=== PATIENT | male | born 1955 | race African-American/Black ===

== ENCOUNTER 2017-05-11 04:39 | Inpatient (IN) | payer OTHER ==
[2017-05-11] VITALS (12 sets, daily range): BP systolic 148–201; BP diastolic 106–776
[~2017-05-11] VITALS: Ht 165.1 cm; Wt 59.1 kg
--- NOTE | ~2017-05-11 | EKG ---
[place] [address] [address] [place] [address] ELECTROCARDIOGRAM REPORT Name: DRE CARTWRIGHT Room #: 359-P ADM IN M.R.#: [id number] Admission: 05/11/17 Attend Phys: Eddie Naidu MD Discharge: Date of : 53 Report #: [id number] THIS REPORT FOR: //name// [facility] ED Test Date: 2017-05-11 Test Time: 04:40:19 Pat Name: DRE CARTWRIGHT Department: Room: 359 Gender: M Analytical Data Scientist: GISELA : 1955 Requested By: Rianna Bernal Order Number: [id number] MD: Kasi Navarrete Measurements Intervals Victor Rate: 77 P: 71 AK: 146 QRS: 60 QRSD: 92 T: 240 QT: 405 QTc: 459 Interpretive Statements Sinus rhythm Probable LVH with secondary repol abnrm No previous ECG available for comparison Electronically Signed On 05-11-2017 19:20:08 CDT by Kasi Navarrete [email or web address] <ELECTRONICALLY SIGNED> By: Kasi Navarrete MD, FAC 05/11/17 1920 0440 0440 Kasi Navarrete MD, FACC /EPI
--- NOTE | ~2017-05-11 | HC ---
[facility] [place] [address] CONSULTATION Name: CHAYDRE Room #: 359-P [facility] IN M.R.#: [id number] Admission: 05/11/17 Attend Phys: Eddie Naidu MD Discharge: 05/13/17 Date of : 53 Report #: [id number] THIS REPORT FOR: //name// CC: Eddie Galvezh Joshua DATE OF SERVICE: 05/12/2017 HISTORY OF PRESENT ILLNESS: The patient is a 61-year-old -Tajik male with a known history of chronic kidney disease, hypertension, CHF, COPD, and prior CVA with right-sided weakness. Apparently, the CVA occurred 2-3 years ago, although the patient is a limited historian. He was recently hospitalized at [facility], discharged on 04/28/2017 for hypertensive urgency, acute on chronic renal failure, and chronic kidney disease. He has a creatinine of 3.2 at baseline. He was admitted to [facility] with uncontrolled blood pressure 201/142. He is being seen by Nephrology and Pulmonary. He has advanced chronic kidney disease with hypertension, cardiomyopathy and a remote history of a hemorrhagic stroke. He is currently on nasal prong O2. His blood pressure medications are being modified. He is responding to diuresis as he was noted to have flash pulmonary edema with the sudden and abrupt rise in his blood pressure. He has had an overall functional decline. We are seeing him in rehabilitation medicine consultation. PAST MEDICAL HISTORY: As noted above. Apparently, the CVA is a couple of years ago. He does have right-sided weakness. PAST MEDICAL HISTORY: Also includes prior tobacco abuse, chronic kidney disease, seizures, and COPD. ALLERGIES: ASPIRIN AND MOTRIN. MEDICATIONS: Please see the full medication listing. SOCIAL HISTORY: He was staying at [facility] since his most recent admission from [facility]. Apparently, this is an assisted living, although I am uncertain this regard. He indicates he had previously been living in a house with brother of his. No steps. REVIEW OF SYSTEMS: No current complaints of chest pain, shortness of breath or abdominal discomfort. PHYSICAL EXAMINATION: GENERAL: A 61-year-old -Tajik male in no obvious distress. He is currently on oxygen nasal prong O2, 2 liters. NEUROLOGIC: Facies are symmetric. He will follow basic 1 step commands. He is pleasant, but does not have a good memory of his prior medical issues. He has [facility] [address] [place] [address] CONSULTATION Name: DRE CARTWRIGHT Room #: 359-P [facility] IN ..#: [id number] Admission: 05/11/17 Attend Phys: Eddie Naidu MD Discharge: 05/13/17 Date of : 53 Report #: [id number] functional range of motion of both upper extremities, strength grade 4+/5 in the left, 4- in the right lower extremity. Functional range of motion, strength is grade 4+/5 in the left, 4- in the right. DTRs are trace to 1. He is min assist with sit to stand. Gait was 150 feet mod assist without a device. He does not like to use the walker, but without it he has significant instability and has loss of balance and noted instability of that right lower extremity. IMPRESSION: A 61-year-old -Tajik male with the following problem list: 1. Right-sided hemiparesis. 2. Late effect cerebrovascular accident. 3. Likely hypertensive encephalopathy. 4. Uncontrolled blood pressure. 5. Flash pulmonary edema. 6. Advanced kidney disease. 7. Acute on chronic diastolic heart failure. 8. Hypertensive cardiomyopathy. PLAN: We will need to check regarding his prior home setting. As far as if the [facility] is indeed an assisted living facility and the plan is for him to return back there. He may be a candidate for a short acute in-hospital inpatient rehabilitation stay. This would allow further maximization of his functional independence as well as monitoring of his considerable blood pressure and multiple medical issues. At this point, we will be glad to follow along with you. <ELECTRONICALLY SIGNED> By: Calixto Heart MD 05/18/17 1030 1132 1941 Calixto Heart MD /[facility]
--- NOTE | ~2017-05-11 | 2DMMODE ---
[facility] [address] [place] [address] 2 D/M-MODE ECHOCARDIOGRAM Name: DRE CARTWRIGHT Room #: 359-P [facility] IN M.R.#: [id number] Admission: 05/11/17 Attend Phys: Eddie Naidu, Discharge: Date of : 53 Date of Service: 05/11/17 1543 Report #: [id number] THIS REPORT FOR: //name// APPROVED REPORT Study performed: 05/11/2017 10:29:39 EXAM: Comprehensive 2D, Doppler, and color-flow Echocardiogram Patient Location: Bedside Room #: 359 Status: routine BSA: 2.00 HR: 72 bpm BP: 177/115 mmHg Rhythm: NSR Other Information Study Quality: Adequate Indications Acute on chronic heart failure, short of breath. Hx: CVA, HTN 2D Dimensions RVDd: 37.67 mm LVEF(%): 38.45 (>50%) IVSd: 13.87 (7-11mm) LVOT Diam: 22.79 (18-24mm) LVDd: 48.17 mm PWd: 13.67 (7-11mm) Ascending Ao: 32.57 (22-36mm) LVDs: 39.20 (25-40mm) Aortic Root: 41.20 mm Dunlap's LVEF: 38.45 % Volumes Left Atrial Volume (Systole) Single Plane 4CH: 70.10 mL Single Plane 2CH: 97.15 mL LA ESV Index: 46.00 mL/m2 Aortic Valve AoV Peak Ady.: 1.01 m/s AO Peak Gr.: 4.06 mmHg LVOT Max P.93 mmHg LVOT Max V: 0.69 m/s LISA Vmax: 2.81 cm2 AI Vmax: 5.63 m/s AI Frederick: 2.81 m/s2 AI PHT: 580.38 ms [facility] [place] [address] 2 D/M-MODE ECHOCARDIOGRAM Name: DRE CARTWRIGHT Room #: 359-P [facility] IN ..#: [id number] Admission: 05/11/17 Attend Phys: Eddie Naidu, Discharge: Date of : 53 Date of Service: 05/11/17 1543 Report #: [id number] Mitral Valve E/A Ratio: 3.1 MV Decel. Time: 195.24 ms MV E Max Ady.: 1.27 m/s MV A Ady.: 0.41 m/s MV PHT: 56.62 ms IVRT: 78.43 ms Pulmonary Valve PV Peak Ady.: 0.72 m/s PV Peak Gr.: 2.09 mmHg Pulmonary Vein P Vein S: 0.35 m/s P Vein D: 0.45 m/s P Vein S/D Ratio: 0.78 Tricuspid Valve TR Peak Ady.: 3.95 m/s RAP Estimate: 5.00 mmHg TR Peak Gr.: 62.47 mmHg PA Pressure: 67.00 mmHg Left Ventricle The left ventricle is normal size. Moderate concentric left ventricular hypertrophy. Left ventricular systolic function is moderate to severely decreased. LVEF 35%. Severe diastolic dysfunction is present (restrictive filling). Right Ventricle The right ventricle is normal size. The right ventricular systolic function is normal. Atria Left atrium is moderate to severely dilated. The right atrium size is normal. Aortic Valve The aortic valve is sclerotic, trileaflet. Mild to moderate aortic regurgitation. There is no aortic valvular stenosis. Mitral Valve The mitral valve is mildly thickened. Mild to moderate mitral regurgitation. Tricuspid Valve The tricuspid valve is normal in structure. Mild to moderate tricuspid regurgitation. Estimated PAP is 65-70mmHg. [address] [address] 2 D/M-MODE ECHOCARDIOGRAM Name: DRE CARTWRIGHT Room #: 359-P [facility] IN [facility]#: [id number] Admission: 05/11/17 Attend Phys: Eddie Naidu, Discharge: Date of : 53 Date of Service: 05/11/17 1543 Report #: [id number] Pulmonic Valve The pulmonary valve is normal in structure. Mild pulmonic regurgitation. Great Vessels Aortic root is dilated at 4.1cm. The ascending aorta is normal in size. IVC is normal in size and collapses >50% with inspiration. Pericardium There is no pericardial effusion. <Conclusion> Left ventricular systolic function is moderate to severely decreased. Moderate concentric left ventricular hypertrophy. LVEF 35%. Severe diastolic dysfunction is present (restrictive filling). Left atrium is moderate to severely dilated. The aortic valve is sclerotic, trileaflet. Mild to moderate aortic regurgitation, no stenosis. The mitral valve is structurally normal. Mild to moderate mitral regurgitation. Mild to moderate tricuspid regurgitation. Estimated pulmonary artery pressure of 65-70mmHg. There is no pericardial effusion. <ELECTRONICALLY SIGNED> By: Kasi Navarrete MD, FACC 05/11/17 1543 1543 1543 Kasi Navarrete MD, FACC /INF
--- NOTE | ~2017-05-11 | HC ---
[facility] [place] [address] CONSULTATION Name: DRE CARTWRIGHT Room #: 359-P [facility] IN M.R.#: [id number] Admission: 05/11/17 Attend Phys: Eddie Naidu MD Discharge: 05/13/17 Date of : 53 Report #: [id number] THIS REPORT FOR: //name// CC: Eddie Galvezh Gennacatholic healthezequiel DATE OF SERVICE: 05/11/2017 REASON FOR CONSULTATION: Elevated creatinine. REASON FOR PRESENTATION: Shortness of breath. HISTORY OF PRESENT ILLNESS: The patient has suffered in the past from a hemorrhagic stroke and I am not really sure how accurate the information he is providing me with. I reviewed all of his medical record in our clinic. He has chronic kidney disease. His baseline creatinine is around 3.2. He also suffers from hypertension and it does look like that there is an issue of noncompliance. He stays in a fdc facility, or an independent living facility, the details are not clear to me and he is not able to provide me with the place he stays in. He presented reporting to the Emergency Room that he has been having shortness of breath for the last few days. Apparently, he has not been compliant with his medications and fluid intake. On presentation, he was found to have hypertensive urgency and was admitted for further evaluation and management of his pulmonary edema. I am being consulted to manage his chronic kidney disease. As I have stated, I reviewed his medical records in our kidney clinic and it does look like that he carries a diagnosis of chronic kidney disease stage 4 with a baseline creatinine of around 3.2. PAST MEDICAL HISTORY: 1. Hemorrhagic stroke. 2. Heart failure in the past. 3. Chronic kidney disease. 4. Hypertensive arterial nephrosclerosis. 5. Noncompliance with medications. 6. Seizure after his hemorrhagic stroke. SOCIAL HISTORY: He stays in an assisted living setting. No drug or alcohol use. MEDICATIONS: Listed on his chronic medications: 1. Furosemide. 2. Keppra. 3. Hydralazine. ALLERGIES: LISTED ON HIS MEDICATIONS ALLERGIES ANGELIQUE INHIBITOR AND NONSTEROIDAL ANTI-INFLAMMATORY MEDICATIONS. [facility] [address] [place] [address] CONSULTATION Name: DRE CARTWRIGHT Room #: 359-P [facility] IN M.R.#: [id number] Admission: 05/11/17 Attend Phys: Eddie Naidu MD Discharge: 05/13/17 Date of : 53 Report #: [id number] REVIEW OF SYSTEMS: GENERAL: Significant for weakness. CARDIOVASCULAR: No chest pain or palpitation. PULMONARY: No cough or hemoptysis; however, significant shortness of breath and dyspnea on exertion. GASTROINTESTINAL: No nausea or vomiting. GENITOURINARY: No frequency or urgency. SKIN: No rash or ulcerations. PHYSICAL EXAMINATION: GENERAL: He is alert, oriented. He is a little tachypneic. VITAL SIGNS: Blood pressure was extremely elevated at 210/110. HEAD AND NECK: Elevated jugular venous pressure. CHEST: Bilateral crackles. CARDIOVASCULAR: S4 gallop, but no rub detected. ABDOMEN: Soft, nontender. LOWER EXTREMITIES: No edema. LABORATORY DATA: Reviewed. Creatinine is up to 3.5. Chest x-ray reviewed, consistent with pulmonary edema. ASSESSMENT, IMPRESSION: 1. Pulmonary edema. 2. Hypertensive urgency. 3. Chronic kidney disease. 4. Questionable compliance. 5. History of hemorrhagic stroke and seizure disorder. PLAN: 1. From the renal perspective, the patient seems to be at his baseline. He is ALLERGIC TO ANGELIQUE INHIBITORS GROUP OF MEDICATIONS. 2. We will aim for gradual reduction in his blood pressure. 3. Diuresis for his pulmonary edema. 4. Salt and fluid restrictions. 5. Cardiac echo. 6. Daily body weight. 7. Strict input and output. 8. Major issue contributing to his pulmonary edema is the fact that he has an extremely high blood pressure and I am not really sure about his medications and who is assisting him with the medications. We will have to communicate with his facility regarding those issues. [facility] [address] [place] [address] CONSULTATION Name: DRE CARTWRIGHT Room #: 359-P [facility] IN M.R.#: [id number] Admission: 05/11/17 Attend Phys: Eddie Naidu MD Discharge: 05/13/17 Date of : 53 Report #: [id number] 9. Once I obtain those information, we will readjust his medications accordingly for better blood pressure control. <ELECTRONICALLY SIGNED> By: Meera Gustafson MD 05/17/17 0848 1532 1558 Meera Gustafson MD /nt
--- NOTE | ~2017-05-11 | HC ---
[facility] [place] [address] CONSULTATION Name: DRE CARTWRIGHT Room #: 359-P [facility] IN M.R.#: [id number] Admission: 05/11/17 Attend Phys: Eddie Naidu MD Discharge: Date of : 53 Report #: [id number] THIS REPORT FOR: //name// CC: Eddie [facility]. [facility] cent[facility]iel REASON FOR CONSULTATION: Shortness of breath. HISTORY OF PRESENT ILLNESS: The patient is a 61-year-old gentleman who has a history of a prior stroke and advanced kidney disease. He lives in an assisted living environment and presents with a several-day history of increasing shortness of breath. Reports this is reminiscent to fluid overload problems that he has had in the past. He reports seeing a plush finisher. He cannot remember the name and tells me that dialysis has been talked about. He has no interest in this. The patient denies chest pain or pressure. He has had mild lower extremity edema. No history of palpitations, near syncope or syncope. ALLERGIES: He is ALLERGIC to ASPIRIN and IBUPROFEN. MEDICATIONS: Include clonidine 0.2 mg twice daily, Plavix 75 mg daily, hydralazine 25 mg 3 times a day, Keppra 500 mg twice daily, Imdur 30 mg daily. PAST MEDICAL HISTORY: Medical records have been reviewed and include a history of hypertension, advanced kidney disease, prior stroke with right-sided weakness. SOCIAL HISTORY: He is a nonsmoker, lives in an assisted living environment. FAMILY HISTORY: Unremarkable for premature coronary disease. REVIEW OF SYSTEMS: All systems negative except as that noted above. PHYSICAL EXAMINATION: GENERAL: This is a pleasant gentleman who is in no distress. VITAL SIGNS: Blood pressure is 170/110, heart rate is 78 and regular, saturations are 100% on room air. HEENT: There are neither xanthelasma, subcutaneous xanthomata, oral mucosal or digital cyanosis or kyphoscoliosis present. CHEST: Clear to auscultation and percussion. CARDIAC: Regular rate and rhythm with normal S1, S2. An S4 gallop is present. Jugular venous pressure is elevated. ABDOMEN: Soft and nontender. EXTREMITIES: With trace edema. Radial pulses are 2+. NEUROLOGIC: Alert with a nonfocal exam. LABORATORY DATA: Sodium is 142, potassium 4.1, creatinine 3.6. Troponin 0.07. ProBNP of 17,000. White count 3.1, hemoglobin 11, hematocrit 36, platelet count [facility] [address] [place] [address] CONSULTATION Name: DRE CARTWRIGHT Room #: 359-P [facility] IN [facility].#: [id number] Admission: 05/11/17 Attend Phys: Eddie Naidu MD Discharge: Date of : 53 Report #: [id number]. Chest x-ray demonstrates cardiomegaly and vascular congestion. IMPRESSION: 1. Tydxb-fb-jvaulpf diastolic heart failure. 2. Advanced kidney disease contributing to #1 above. 3. Hypertension. 4. Prior stroke. RECOMMENDATIONS: 1. Renal consultation. 2. Echocardiogram with Doppler. I suspect most of his presenting symptoms are on the basis of advancing kidney disease. With improved volume status, I suspect his blood pressure will also improve. Thank you for asking me to participate in his care. <ELECTRONICALLY SIGNED> By: Kasi Navarrete MD, FACC 05/12/17 1453 0918 0953 Kasi Navarrete MD, FACC /nt
[2017-05-11 05:01] LABS: ABSOLUTE NEUTROPHILS 1.9 thou/uL (1.4-8.2); BASOPHILS 0.9 % (0.0-2.0); EOSINOPHILS 4.8 % (0.0-3.0); HEMATOCRIT 36.5 % (42.0-52.0); HEMOGLOBIN 11.7 gm/dL (14.0-18.0); LYMPHOCYTES 23.5 % (24.0-44.0); MCH 28.2 pg (26.0-34.0); MCV 88.1 fL (80.0-100.0); MONOCYTES 9.4 % (1.0-8.0); PLATELET COUNT 139 thou/uL (150-400); POLYS 61.4 % (36.0-66.0); RBC 4.14 mil/uL (4.50-6.00); RDW 16.2 % (10.5-14.5); WBC 3.1 thou/uL (4.0-11.0)
[2017-05-11 05:04] LABS: CALCIUM 7.9 mg/dL (8.5-10.1); CREATININE 3.6 mg/dL (0.7-1.3); POTASSIUM 4.1 mmol/L (3.5-5.1)
[2017-05-11 05:13] LABS: TROPONIN-I 0.07 ng/mL (<0.06)
[2017-05-11] MEDS ORDERED: HYDRALAZINE 2525 MG PO (05:39)
[2017-05-11] MEDS ORDERED: PLAVIX 75 MG TA75 M1 PO (05:39)
[2017-05-11] MEDS ORDERED: CATAPRES0.1 MG PO (05:39)
[2017-05-11] MEDS ORDERED: IMDUR 30 MG TAB30 M1 PO (05:41)
[2017-05-11] MEDS ORDERED: KEPPRA 500 MG500 M1 PO (05:41)
[2017-05-11] MEDS ORDERED: CLONIDINE HCL0.2 M2 PO (05:44)
[2017-05-11] MEDS ORDERED: COREG25 MG PO (10:15)
[2017-05-11 10:36] LABS: CHOLESTEROL 151 mg/dL (<200); HDL CHOLESTEROL 69 mg/dL (>40); LDL CHOLESTEROL 78 mg/dL (<100); TC:HDL 2.2 Ratio (Not establshd); TRIGLYCERIDE 23 mg/dL (<150); VLDL 5 mg/dL (<40)
[2017-05-12 04:15] VITALS: BP 171/116
[2017-05-12 05:44] LABS: HEMATOCRIT 33.5 % (42.0-52.0); MCH 28.7 pg (26.0-34.0); MCHC 32.9 g/dL (28.0-37.0); MCV 87.3 fL (80.0-100.0); RBC 3.84 mil/uL (4.50-6.00); RDW 15.8 % (10.5-14.5); WBC 4.2 thou/uL (4.0-11.0)
[2017-05-12 06:06] LABS: ALBUMIN 2.7 g/dL (3.4-5.0); CALCIUM 8.1 mg/dL (8.5-10.1); CREATININE 3.9 mg/dL (0.7-1.3); PHOSPHORUS 4.4 mg/dL (2.5-4.9); POTASSIUM 3.7 mmol/L (3.5-5.1)
[2017-05-12 08:05] VITALS: BP 178/123
[2017-05-12 11:44] VITALS: BP 156/114
[2017-05-12 15:32] VITALS: BP 124/92
[2017-05-12 19:15] VITALS: BP 131/97
[2017-05-13 03:33] VITALS: BP 148/92
[2017-05-13 06:37] LABS: HEMATOCRIT 38.2 % (42.0-52.0); HEMOGLOBIN 12.6 gm/dL (14.0-18.0); MCH 28.4 pg (26.0-34.0); MCV 86.1 fL (80.0-100.0); RBC 4.43 mil/uL (4.50-6.00); RDW 15.5 % (10.5-14.5)
[2017-05-13 06:49] LABS: CALCIUM 8.3 mg/dL (8.5-10.1); CREATININE 3.8 mg/dL (0.7-1.3); PHOSPHORUS 4.4 mg/dL (2.5-4.9); POTASSIUM 3.6 mmol/L (3.5-5.1)
[2017-05-13 07:56] VITALS: BP 159/110
[2017-05-13 12:10] VITALS: BP 108/81
[2017-05-13 13:23] VITALS: BP 108/81
[2017-05-13] MEDS ORDERED: HYDRALAZINE 2525 MG PO (14:18)
[2017-05-13] MEDS ORDERED: DEMADEX20 MG PO (14:18)
[2017-05-13] MEDS ORDERED: IMDUR 30 MG TAB30 M1 PO (14:18)
[2017-05-13] MEDS ORDERED: CALTRATE-600 W1 EACH PO (14:18)
[2017-05-13] MEDS ORDERED: CATAPRES0.1 MG PO (14:18)
[2017-05-13] MEDS ORDERED: NORVASC10 MG PO (14:18)
[2017-05-13] MEDS ORDERED: MIRALAX17 GM PO (14:18)
== END 2017-05-13 14:59 | disposition short-term general hospital (02) | DRG 291 ==
LOC: ER 04:39 → EROBS 06:21 → 3W 06:21
PROVIDERS: Emergency Medicine; Hospitalist; Internal Medicine
DX: I13.0 Hypertensive heart and chronic kidney disease with heart failure and stage 1 through stage 4 chronic kidney disease, or unspecified chronic kidney disease (principal); I50.33 Acute on chronic diastolic (congestive) heart failure; N17.9 Acute kidney failure, unspecified; I69.351 Hemiplegia and hemiparesis following cerebral infarction affecting right dominant side; I16.1 Hypertensive emergency; I42.9 Cardiomyopathy, unspecified; N18.9 Chronic kidney disease, unspecified; I16.0 Hypertensive urgency; G40.909 Epilepsy, unspecified, not intractable, without status epilepticus; R26.81 Unsteadiness on feet; J44.9 Chronic obstructive pulmonary disease, unspecified; Z87.891 Personal history of nicotine dependence; Z88.6 Allergy status to analgesic agent; Z88.8 Allergy status to other drugs, medicaments and biological substances
CPT/HCPCS: 10879

== ENCOUNTER 2017-05-13 11:59 | Inpatient (IN) | payer OTHER ==
[~2017-05-13] VITALS: Ht 167.6 cm; Wt 58.3 kg
--- NOTE | ~2017-05-13 | H ---
[facility] [place] [address] HISTORY AND PHYSICAL Name: DRE CARTWRIGHT Room #: 504-2 ADM IN M.R.#: [id number] Admission: 05/13/17 Attend Phys: Calixto Heart MD Discharge: Date of : 53 Report #: [id number] THIS REPORT FOR: //name// CC: Calixto Lewis DATE OF SERVICE: 05/13/2017 ADDENDUM Note, I am covering for Dr. Calixto Heart and therefore completing this history and physical for him. Please see complete history and physical that was done by Carlene Padilla NP HISTORY OF PRESENT ILLNESS: Briefly, the patient is a pleasant 61-year-old right hand dominant male with a known history of chronic kidney disease, hypertension, congestive heart failure, COPD and a prior cerebrovascular accident with right-sided weakness. Records indicate that his stroke was approximately 2-3 years ago, but the patient provides a limited amount of history. He was recently hospitalized at [facility] and discharged on 04/28/2017 with hypertensive urgency, acute on chronic renal failure and chronic kidney disease. He was seen in consultation by Dr. Calixto Heart on 05/12/2017, and it was determined that he would benefit from an acute inpatient rehabilitation stay. He lives in an assisted living facility, and the plan is for him to return to assisted living. Dr. Heart felt he would be a good candidate for a short in-hospital rehabilitation stay in order to further maximize his functional independence and to monitor his considerable blood pressure issues and other multiple medical issues. POSTADMISSION PHYSICIAN EVALUATION.: A post-admission physician evaluation was performed today. The patient's preadmission screening was reviewed in its entirety by this examiner. His current clinical status is supported by the information contained within. He is an appropriate candidate to undergo a comprehensive inpatient rehabilitation program consisting of physical therapy, occupational therapy and speech therapy 3 hours a day for at least 5 days a week. Furthermore, nothing is changed since his preadmission screen was completed to suggest that he is not a candidate for the program. It is my opinion that inpatient rehabilitation rather than alf is much more appropriate environment for the patient due to his multiple medical needs, requiring comprehensive followup care. He is at risk of clinical [address] [address] HISTORY AND PHYSICAL Name: DRE CARTWRIGHT Room #: 504-2 ADM IN [facility].#: [id number] Admission: 05/13/17 Attend Phys: Calixto Heart MD Discharge: Date of : 53 Report #: [id number] complications during rehabilitation due to the following adverse medical conditions: 1. Congestive heart failure. 2. Chronic obstructive pulmonary disease. 3. Substantial elevated hypertension. 4. Chronic renal failure on chronic kidney disease with a creatinine at baseline of 3.2. 5. Hypertensive encephalopathy. My plan to manage these conditions is to consult Dr. Cochran, Dr. Gustafson and Dr. Barnett to help manage his multiple medical issues. INDIVIDUALIZED OVERALL PLAN OF CARE: Summarization of findings. The patient is receiving an inpatient rehabilitation program due to the following functional impairments: 1. Hypertensive encephalopathy. 2. Late effects of cerebrovascular accident. 3. Multiple medical issues leading to functional immobility. 4. Visual deficits due to prior stroke and chronic medical issues. IDENTIFIED INTERVENTIONS: Include physical therapy, occupational therapy, speech therapy to address mobility and self-care deficits, communication, cognitive and swallowing impairment. Physical Medicine and Rehabilitation will provide management of his rehabilitation care plan. Internal Medicine will follow him for multiple medical issues. Nephrology will follow him for his chronic kidney disease. Rehabilitation nursing care 24 hours a day will be provided for care needs. behavioral services tech for discharge planning and medical equipment needs. Dietitian consultation for nutritional purposes. ESTIMATED LENGTH OF STAY: Approximately 10 days. ANTICIPATED FUNCTIONAL OUTCOME: Modified independent to standby assist with mobility and self-care skills. ANTICIPATED DISCHARGE DESTINATION: Home with assistance in the assisted living facility. He will likely benefit from continued therapies at the time of discharge. MEDICAL PROGNOSIS: Fair. He will continue to receive internal medicine followup. Nephrology followup. Neuropsych followup. ANTICIPATED THERAPIES: Physical therapy, occupational therapy and speech therapy 3 hours a day 5 days a week for an anticipated duration of 10 days. SUMMARIZATION OF TREATMENT PLAN: The patient will continue to receive an [address] [address] HISTORY AND PHYSICAL Name: CHAYDRE Room #: 504-2 [facility] IN M.R.#: [id number] Admission: 05/13/17 Attend Phys: Calixto Heart MD Discharge: Date of : 53 Report #: [id number] inpatient rehabilitation program as outlined above in an effort to improve his overall function and return home at a modified independent level within 10 days. <ELECTRONICALLY SIGNED> By: Damián Daigle DO 05/15/17 1411 1709 1748 Damián Daigle DO /nt
[~2017-05-13 11:59] MED LIST: CATAPRES0.1 MG PO; CLONIDINE HCL0.2 M2 PO; COREG25 MG PO; HYDRALAZINE 2525 MG PO; IMDUR 30 MG TAB30 M1 PO; KEPPRA 500 MG500 M1 PO; PLAVIX 75 MG TA75 M1 PO
[2017-05-13] MEDS ORDERED: DEMADEX20 MG PO (14:18)
[2017-05-13] MEDS ORDERED: CALTRATE-600 W1 EACH PO (14:18)
[2017-05-13] MEDS ORDERED: NORVASC10 MG PO (14:18)
[2017-05-13] MEDS ORDERED: CATAPRES0.1 MG PO (14:18)
[2017-05-13] MEDS ORDERED: IMDUR 30 MG TAB30 M1 PO (14:18)
[2017-05-13] MEDS ORDERED: MIRALAX17 GM PO (14:18)
[2017-05-13] MEDS ORDERED: HYDRALAZINE 2525 MG PO (14:18)
[2017-05-13 15:00] VITALS: BP 105/77
[2017-05-13 20:20] VITALS: BP 134/93
[2017-05-14 06:10] LABS: HEMATOCRIT 40.5 % (42.0-52.0); HEMOGLOBIN 13.3 gm/dL (14.0-18.0); MCH 28.2 pg (26.0-34.0); MCHC 32.7 g/dL (28.0-37.0); MCV 86.1 fL (80.0-100.0); RBC 4.7 mil/uL (4.50-6.00); RDW 15.8 % (10.5-14.5); WBC 3.9 thou/uL (4.0-11.0)
[2017-05-14 06:26] LABS: CALCIUM 8.3 mg/dL (8.5-10.1); MAGNESIUM 1.9 mg/dL (1.8-2.4); PHOSPHORUS 3.9 mg/dL (2.5-4.9); POTASSIUM 3.9 mmol/L (3.5-5.1)
[2017-05-14 07:30] VITALS: BP 146/96
[2017-05-14 17:52] VITALS: BP 102/74
[2017-05-14 19:51] VITALS: BP 128/90
[2017-05-15 06:59] LABS: ALBUMIN 3.1 g/dL (3.4-5.0); CALCIUM 8.2 mg/dL (8.5-10.1); CREATININE 4.4 mg/dL (0.7-1.3); PHOSPHORUS 4.1 mg/dL (2.5-4.9); POTASSIUM 3.7 mmol/L (3.5-5.1)
[2017-05-15 07:38] VITALS: BP 157/112
[2017-05-15 19:10] VITALS: BP 137/93
[2017-05-16 11:07] LABS: CALCIUM 9.1 mg/dL (8.5-10.1); CREATININE 4.4 mg/dL (0.7-1.3)
[2017-05-16 19:10] VITALS: BP 142/103
[2017-05-17 06:43] LABS: ALBUMIN 2.7 g/dL (3.4-5.0); CALCIUM 8.3 mg/dL (8.5-10.1); CREATININE 4.1 mg/dL (0.7-1.3); PHOSPHORUS 4.1 mg/dL (2.5-4.9); POTASSIUM 3.6 mmol/L (3.5-5.1)
[2017-05-17 07:15] VITALS: BP 162/102
[2017-05-17 15:47] VITALS: BP 149/108
[2017-05-17 19:58] VITALS: BP 158/99
[2017-05-18 07:10] VITALS: BP 181/128
[2017-05-18 08:10] LABS: ALBUMIN 3.5 g/dL (3.4-5.0); CALCIUM 8.8 mg/dL (8.5-10.1); CREATININE 3.6 mg/dL (0.7-1.3); PHOSPHORUS 3.8 mg/dL (2.5-4.9); POTASSIUM 3.9 mmol/L (3.5-5.1)
[2017-05-18 08:24] VITALS: BP 179/127
[2017-05-18 10:56] VITALS: BP 160/110
[2017-05-18 20:33] VITALS: BP 146/97
[2017-05-19 07:45] VITALS: BP 166/113
[2017-05-19 12:34] VITALS: BP 158/111
[2017-05-19 16:17] VITALS: BP 147/101
[2017-05-19 19:11] VITALS: BP 181/116
[2017-05-19 21:19] VITALS: BP 155/98
[2017-05-20 03:39] LABS: ABSOLUTE NEUTROPHILS 2.2 thou/uL (1.4-8.2); BASOPHILS 0.9 % (0.0-2.0); EOSINOPHILS 6.2 % (0.0-3.0); HEMATOCRIT 36.3 % (42.0-52.0); HEMOGLOBIN 11.8 gm/dL (14.0-18.0); LYMPHOCYTES 28.4 % (24.0-44.0); MCH 28.1 pg (26.0-34.0); MCHC 32.6 g/dL (28.0-37.0); MCV 86.1 fL (80.0-100.0); MONOCYTES 10.6 % (1.0-8.0); PLATELET COUNT 138 thou/uL (150-400); POLYS 53.9 % (36.0-66.0); RBC 4.22 mil/uL (4.50-6.00); RDW 15.3 % (10.5-14.5); WBC 4.1 thou/uL (4.0-11.0)
[2017-05-20 03:43] LABS: ALBUMIN 2.7 g/dL (3.4-5.0); CALCIUM 8.4 mg/dL (8.5-10.1); CREATININE 3.3 mg/dL (0.7-1.3); MAGNESIUM 2.2 mg/dL (1.8-2.4); PHOSPHORUS 2.9 mg/dL (2.5-4.9)
[2017-05-20 07:00] VITALS: BP 162/105
[2017-05-20 15:09] VITALS: BP 160/105
[2017-05-20 20:00] VITALS: BP 169/113
[2017-05-20 23:00] VITALS: BP 155/82
[2017-05-21 07:11] VITALS: BP 178/108
[2017-05-21] MEDS ORDERED: IMDUR 30 MG TAB30 M1 PO (10:14)
[2017-05-21] MEDS ORDERED: ERGOCALCIF50000 UNIT PO (10:14)
[2017-05-21] MEDS ORDERED: KEPPRA 500 MG500 M1 PO (10:15)
[2017-05-21] MEDS ORDERED: NORVASC10 MG PO (10:15)
[2017-05-21] MEDS ORDERED: COREG25 MG PO (10:15)
[2017-05-21] MEDS ORDERED: HYDRALAZINE 2525 MG PO (10:15)
== END 2017-05-21 20:48 | disposition home health service (06) | DRG 56 ==
LOC: ENTRNSPT 05-21 18:48
PROVIDERS: Hospitalist; Nurse Practitioner; Nurse Practitioner Family
DX: I69.951 Hemiplegia and hemiparesis following unspecified cerebrovascular disease affecting right dominant side (principal); I50.43 Acute on chronic combined systolic (congestive) and diastolic (congestive) heart failure; I13.0 Hypertensive heart and chronic kidney disease with heart failure and stage 1 through stage 4 chronic kidney disease, or unspecified chronic kidney disease; N17.9 Acute kidney failure, unspecified; I67.4 Hypertensive encephalopathy; J81.1 Chronic pulmonary edema; N18.9 Chronic kidney disease, unspecified; J44.9 Chronic obstructive pulmonary disease, unspecified; I16.0 Hypertensive urgency; R53.81 Other malaise; I69.322 Dysarthria following cerebral infarction; R07.9 Chest pain, unspecified; R26.9 Unspecified abnormalities of gait and mobility; G47.00 Insomnia, unspecified; E55.9 Vitamin D deficiency, unspecified; I95.9 Hypotension, unspecified; Z88.6 Allergy status to analgesic agent
CPT/HCPCS: 10092; 10112

== ENCOUNTER → 2017-05-27 | Outpatient (CLI) | payer OTHER ==
[~2017-05-27] VITALS: Ht 167.6 cm; Wt 56.7 kg
[~2017-05-27] MED LIST changes: +CALTRATE-600 W1 EACH PO; +DEMADEX20 MG PO; +ERGOCALCIF50000 UNIT PO; +MIRALAX17 GM PO; +NORVASC10 MG PO
[2017-05-27 13:21] VITALS: BP 157/109
== END ==
LOC: SEN 09:16
DX: I13.0 Hypertensive heart and chronic kidney disease with heart failure and stage 1 through stage 4 chronic kidney disease, or unspecified chronic kidney disease (principal); N18.4 Chronic kidney disease, stage 4 (severe); I50.9 Heart failure, unspecified; J44.9 Chronic obstructive pulmonary disease, unspecified; I63.9 Cerebral infarction, unspecified

== ENCOUNTER 2017-07-22 18:30 | Inpatient (IN) | payer OTHER ==
[~2017-07-22] VITALS: Ht 167.6 cm; Wt 77.1 kg
[2017-07-22] VITALS (11 sets, daily range): BP systolic 152–216; BP diastolic 67–114
--- NOTE | ~2017-07-22 | EKG ---
[place] [address] [facility] [place] [address] ELECTROCARDIOGRAM REPORT Name: DRE CARTWRIGHT Room #: 354-P ADM IN M.R.#: [id number] Admission: 07/22/17 Attend Phys: Jaclyn Freire Discharge: Date of : 53 Report #: [id number] THIS REPORT FOR: //name// [facility] ED Test Date: 2017-07-22 Test Time: 18:45:59 Pat Name: DRE CARTWRIGHT Department: Room: Gender: Senior J2Ee Developer: aj : 1955 Requested By: Douglas Pedroza Order Number: [id number] MD: Kasi Navarrete Measurements Intervals Nancy Rate: 85 P: 58 LA: 139 QRS: 6 QRSD: 97 T: 168 QT: 385 QTc: 458 Interpretive Statements Sinus rhythm LVH with secondary repolarization abnormality Anterior Q waves, possibly due to LVH Compared to ECG 05/11/2017 04:40:19 Septal Q waves are more prominent Electronically Signed On 07-23-2017 8:18:55 CDT by Kasi Navarrete [email or web address] <ELECTRONICALLY SIGNED> By: Kasi Navarrete MD, [facility] 07/23/1718 1845 1845 Kasi Navarrete MD, [facility] /EPI
--- NOTE | ~2017-07-22 | HC ---
[facility] [place] [address] CONSULTATION Name: DRE CARTWRIGHT Room #: 354-P ADM IN M.R.#: [id number] Admission: 07/22/17 Attend Phys: Jaclyn Freire Discharge: Date of : 53 Report #: [id number] THIS REPORT FOR: //name// CC: [facility] physician/PCP Jaclyn Freire REASON FOR CONSULTATION: Chronic kidney disease. REASON FOR PRESENTATION: Elevated blood pressure. HISTORY OF PRESENT ILLNESS: This is a very well known patient to me. He suffered from a hemorrhagic stroke at [facility] a while ago and is followed by Dr. Kathleen in our clinic. Baseline creatinine is around 3.5. He also has hypertension and had repeated hospitalization with elevated blood pressure, mainly due to noncompliance with medications. Unfortunately, the patient has some mental issues after his stroke. He is not able to tell me about his blood pressure medications. He is not really sure when was the last time he saw Dr. Kathleen in the clinic. He was in the hospital back in April of this year for a similar presentation. When he presented yesterday, blood pressure was in the 200/117. He denies any headache. No chest pain. No shortness of breath. He stated that he is compliant with his medications. He also stated that he is strict with his salt, which I seriously doubt. Listed on his discharge medications from the last admission is isosorbide, hydralazine, carvedilol, amlodipine. Of note, this is the fact that he is allergic to LISINOPRIL and had an ANGIOEDEMA REACTION to it in the past. PAST MEDICAL HISTORY: 1. Chronic kidney disease. 2. Hypertension. 3. Seizure disorder. 4. CVA with impaired speech. FAMILY HISTORY: Significant for hypertension. SOCIAL HISTORY: He lives with his brother. He denies drug or alcohol abuse. MEDICATIONS: 1. Hydralazine. 2. Isosorbide. 3. Carvedilol. 4. Amlodipine. 5. Keppra. REVIEW OF SYSTEMS: Poor historian, not able to provide me with details of his review of system. PHYSICAL EXAMINATION: [facility] [address] [place] [address] CONSULTATION Name: SOFIA CARTWRIGHTR Room #: 354-P [facility] IN M.R.#: [id number] Admission: 07/22/17 Attend Phys: Jaclyn Freire Discharge: Date of : 53 Report #: [id number] GENERAL: Alert, oriented. VITAL SIGNS: Blood pressure 156/67. HEAD AND NECK: No jugular venous distention. CHEST: No crackles. CARDIOVASCULAR: Regular with no rub. ABDOMEN: Soft, nontender. LOWER EXTREMITIES: No edema. LABORATORY DATA: Laboratory values reviewed. Creatinine was 5.1 and is down to 4.9, potassium was 3.1 and is up to 3.5. IMAGING: Chest x-ray reviewed. ASSESSMENT, IMPRESSION AND PLAN: 1. Chronic kidney disease. 2. Hypertensive urgency. 3. Hypokalemia. 4. Noncompliance. 5. Resume his blood pressure medication. 6. Replace potassium. 7. Need to discuss long-term care plans with his family members as this seems to be a recurrent issue. 8. Discontinue lisinopril as the patient has some angioedema reaction to it in the past. By: 0900 1131 Meera Gustafson MD /nt
[2017-07-22] MEDS ORDERED: VITAMIN D250000 UNIT PO (18:45)
[2017-07-22 19:57] LABS: ABSOLUTE NEUTROPHILS 8.9 thou/uL (1.4-8.2); BASOPHILS 0.7 % (0.0-2.0); EOSINOPHILS 0.8 % (0.0-3.0); HEMATOCRIT 41.7 % (42.0-52.0); HEMOGLOBIN 13.8 gm/dL (14.0-18.0); LYMPHOCYTES 6.8 % (24.0-44.0); MCH 27.8 pg (26.0-34.0); MCHC 33.1 g/dL (28.0-37.0); MCV 83.9 fL (80.0-100.0); MONOCYTES 7.1 % (1.0-8.0); PLATELET COUNT 194 thou/uL (150-400); POLYS 84.6 % (36.0-66.0); RBC 4.97 mil/uL (4.50-6.00); RDW 15.8 % (10.5-14.5); WBC 10.5 thou/uL (4.0-11.0)
[2017-07-22 20:05] LABS: CREATININE 5.1 mg/dL (0.7-1.3); POTASSIUM 3.1 mmol/L (3.5-5.1)
[2017-07-22 20:14] LABS: ALBUMIN 3.5 g/dL (3.4-5.0); TOTAL BILIRUBIN 0.5 mg/dL (<0.1-1.0); TOTAL PROTEIN 7.5 g/dL (6.4-8.2); TROPONIN-I 0.08 ng/mL (<0.06)
[2017-07-23] VITALS (16 sets, daily range): BP systolic 145–172; BP diastolic 69–88
[2017-07-23 07:55] LABS: CALCIUM 8.6 mg/dL (8.5-10.1); CREATININE 4.9 mg/dL (0.7-1.3); PHOSPHORUS 3.8 mg/dL (2.5-4.9); POTASSIUM 3.5 mmol/L (3.5-5.1); TROPONIN-I 0.12 ng/mL (<0.06)
[2017-07-24] VITALS (8 sets, daily range): BP systolic 131–174; BP diastolic 75–107
[2017-07-24 06:21] LABS: ALBUMIN 2.9 g/dL (3.4-5.0); CALCIUM 8.6 mg/dL (8.5-10.1); CREATININE 4.1 mg/dL (0.7-1.3); PHOSPHORUS 3.4 mg/dL (2.5-4.9); POTASSIUM 3.1 mmol/L (3.5-5.1)
[2017-07-25 03:30] VITALS: BP 148/96
[2017-07-25 05:43] LABS: ALBUMIN 2.5 g/dL (3.4-5.0); CALCIUM 8.3 mg/dL (8.5-10.1); PHOSPHORUS 3.2 mg/dL (2.5-4.9)
[2017-07-25 07:27] VITALS: BP 148/93
[2017-07-25] MEDS ORDERED: COREG25 MG PO (08:35)
[2017-07-25] MEDS ORDERED: NORVASC10 MG PO (08:35)
[2017-07-25] MEDS ORDERED: KEPPRA 500 MG500 M1 PO (08:35)
[2017-07-25] MEDS ORDERED: IMDUR 30 MG TAB30 M1 PO (08:35)
[2017-07-25] MEDS ORDERED: HYDRALAZINE 2525 MG PO (08:35)
[2017-07-25] MEDS ORDERED: VITAMIN D250000 UNIT PO (08:35)
[2017-07-25] MEDS ORDERED: CLONIDINE0.1 PO (08:35)
[2017-07-25 11:01] VITALS: BP 148/93
[2017-07-25 11:23] VITALS: BP 117/75
[2017-07-25 15:27] VITALS: BP 144/78
== END 2017-07-25 15:50 | disposition home or self-care (01) | DRG 682 ==
LOC: ER 18:30 → 3W 20:49 → EROBS 20:49 → 3W 22:08
PROVIDERS: Emergency Medicine; Hospitalist; Nurse Practitioner Acute Care
PROC: B54MZZA Ultrasonography of Right Upper Extremity Veins, Guidance (ICD-10-PCS; principal; 2017-07-22)
PROC: 05HY33Z Insertion of Infusion Device into Upper Vein, Percutaneous Approach (ICD-10-PCS; principal; 2017-07-22)
DX: N17.9 Acute kidney failure, unspecified (principal); E43 Unspecified severe protein-calorie malnutrition; I16.1 Hypertensive emergency; I50.32 Chronic diastolic (congestive) heart failure; I42.9 Cardiomyopathy, unspecified; I13.0 Hypertensive heart and chronic kidney disease with heart failure and stage 1 through stage 4 chronic kidney disease, or unspecified chronic kidney disease; J44.9 Chronic obstructive pulmonary disease, unspecified; G40.909 Epilepsy, unspecified, not intractable, without status epilepticus; I16.0 Hypertensive urgency; E87.6 Hypokalemia; N18.4 Chronic kidney disease, stage 4 (severe); I27.20 Pulmonary hypertension, unspecified; Z79.899 Other long term (current) drug therapy; Z86.73 Personal history of transient ischemic attack (TIA), and cerebral infarction without residual deficits; Z88.6 Allergy status to analgesic agent; Z82.49 Family history of ischemic heart disease and other diseases of the circulatory system; Z91.19 Patient's noncompliance with other medical treatment and regimen; Z87.891 Personal history of nicotine dependence
CPT/HCPCS: 10879

== ENCOUNTER 2017-08-20 23:43 | Inpatient (IN) | payer OTHER ==
[~2017-08-20] VITALS: Ht 165.1 cm; Wt 63.7 kg
--- NOTE | ~2017-08-20 | HC ---
[facility] [place] [address] CONSULTATION Name: DRE CARTWRIGHT Room #: 350-P ADM IN M.R.#: [id number] Admission: 08/21/17 Attend Phys: Dino Herron MD Discharge: Date of : 53 Report #: [id number] THIS REPORT FOR: //name// CC: [facility] physician/PCP Jaclyn Freire REASON FOR CONSULTATION: Chronic kidney disease. HISTORY OF PRESENT ILLNESS: A 62-year-old who is well known to me. He has a complicated hospital course at [facility], where he had a stroke complicated by some sort of dysphagia. He is known to have chronic kidney disease with a baseline creatinine of around 3.5. He has had repeated hospital presentation for blood pressure being out of control, and I suspect the major compliance issue with his medications. He presented to the Emergency Room, reporting that he had been having some shortness of breath. He denies cough or hemoptysis. He tells me that this has been running with him in the last couple of days. No fever or chills. No nonsteroidal anti-inflammatory medication changes. He tells me that he has not changed any of his medications. His creatinine on presentation was way above his baseline, and I am consulted to manage his chronic kidney disease. PAST MEDICAL HISTORY: 1. Hypertension. 2. Hemorrhagic stroke. 3. Chronic kidney disease. 4. Dysphagia. 5. Hypertensive arterial nephrosclerosis. 6. Seizure from his hemorrhagic stroke. SOCIAL HISTORY: He lives with his brother. No drug or alcohol abuse. ALLERGIES: LISINOPRIL, NONSTEROIDAL ANTI-INFLAMMATORY MEDICATIONS. MEDICATIONS: 1. Hydralazine. 2. Carvedilol. 3. Amlodipine. 4. Isosorbide. 5. Keppra. REVIEW OF SYSTEMS: Given the patient's mental status and his dysphagia, I am not really able to give a detailed review of system. PHYSICAL EXAMINATION: VITAL SIGNS: Blood pressure 155/91, temperature is 36.7. HEAD AND NECK: No jugular venous distention, no bruit, no thyromegaly. CHEST: Clear to auscultation bilaterally. [facility] [address] [place] [address] CONSULTATION Name: DRE CARTWRIGHT Room #: 350-[facility] IN .R.#: [id number] Admission: 08/21/17 Attend Phys: Dino Herron MD Discharge: Date of : 53 Report #: [id number] CARDIOVASCULAR: Regular with no rub detected. ABDOMEN: Soft, nontender with no hepatosplenomegaly. LOWER EXTREMITIES: No edema. LABORATORY DATA: Reviewed. Potassium 3.3, BUN is 96, creatinine is 9.6. BNP is elevated at 22,937. Echo from 04/2017 revealed a severely decreased left ventricular function at 35%. His estimated PA pressure at that time was elevated at 65-70 ASSESSMENT, IMPRESSION AND PLAN: 1. Acute kidney injury. 2. Severe pulmonary hypertension. 3. Chronic kidney disease. 4. Hypertension. 5. Advanced cardiomyopathy. 6. Hypokalemia. 7. Control blood pressure. 8. Watch electrolytes. 9. Being treated as chronic obstructive pulmonary disease. 10. Coverage for possible pneumonitis. 11. Discontinue IV fluid. 12. We will need diuresis down the road. 13. We will likely initiate dialysis within the next few days if his numbers are not any better. <ELECTRONICALLY SIGNED> By: Meera Gustafson MD 08/23/17 0945 0744 0926 Meera Gustafson MD /nt
--- NOTE | ~2017-08-20 | EKG ---
[address] [place] [address] ELECTROCARDIOGRAM REPORT Name: DRE CARTWRIGHT Room #: 350-P ADM IN M.R.#: [id number] Admission: 08/21/17 Attend Phys: Dino Herron MD Discharge: Date of : 53 Report #: [id number] THIS REPORT FOR: //name// [facility] ED Test Date: 2017-08-20 Test Time: 23:43:42 Pat Name: DRE CARTWRIGHT Department: Room: Gender: M Case Consultant: TALON : 1955 Requested By: Dylan Lomax Order Number: [id number] MD: Kasi Navarrete Measurements Intervals [place] Rate: 101 P: 70 [place]: 145 QRS: -12 QRSD: 96 T: 144 QT: 382 QTc: 496 Interpretive Statements Sinus tachycardia LVH with secondary repolarization abnormality Borderline prolonged QT interval Compared to ECG 07/22/2017 18:45:59 No significant change was found Electronically Signed On 08-23-2017 9:12:36 CDT by Kasi Navarrete [email or web address] <ELECTRONICALLY SIGNED> By: Kasi Navarrete MD, [facility] 08/23/17 0912 2343 234 Kasi Navarrete MD, [facility] /EPI
[~2017-08-20 23:43] MED LIST changes: +CLONIDINE0.1 PO; +VITAMIN D250000 UNIT PO
[2017-08-20 23:44] VITALS: BP 167/98
[2017-08-21] VITALS (8 sets, daily range): BP systolic 134–186; BP diastolic 78–112
[2017-08-21 00:16] LABS: ABSOLUTE NEUTROPHILS 5.9 thou/uL (1.4-8.2); BASOPHILS 1.3 % (0.0-2.0); EOSINOPHILS 1.5 % (0.0-3.0); LYMPHOCYTES 10.8 % (24.0-44.0); MCH 28.3 pg (26.0-34.0); MCHC 34.6 g/dL (28.0-37.0); MCV 81.9 fL (80.0-100.0); MONOCYTES 8.6 % (1.0-8.0); PLATELET COUNT 178 thou/uL (150-400); POLYS 77.8 % (36.0-66.0); RBC 3.54 mil/uL (4.50-6.00); WBC 7.6 thou/uL (4.0-11.0)
[2017-08-21 00:21] LABS: CALCIUM 8.6 mg/dL (8.5-10.1); CREATININE 9.6 mg/dL (0.7-1.3); POTASSIUM 3.3 mmol/L (3.5-5.1)
[2017-08-21 00:28] LABS: BE(vivo) -1.6 mmol/L (-2 to +3); HCO3 22.1 mmol/L (22.0-26.0); PCO2 33.5 mmHg (35.0-45.0); pH 7.437 (7.360-7.450); sO2 88.2 % (92.0-98.0)
[2017-08-21 00:29] LABS: MAGNESIUM 2.2 mg/dL (1.8-2.4); TOTAL BILIRUBIN 0.5 mg/dL (<0.1-1.0); TOTAL PROTEIN 6.7 g/dL (6.4-8.2); TROPONIN-I 0.12 ng/mL (<0.06)
[2017-08-21 00:29] LABS: PO2 51.7 mmHg (80.0-100.0)
[2017-08-21 00:30] LABS: APTT 26.5 Seconds (24.5-32.8); INR 1.1; PROTIME 11.1 Seconds (9.3-11.4)
[2017-08-21] MEDS ORDERED: DEMADEX20 MG PO ×2 (03:28→03:30)
[2017-08-21] MEDS ORDERED: LIPITOR10 MG PO (03:31)
[2017-08-22] VITALS (7 sets, daily range): BP systolic 127–154; BP diastolic 76–87
[2017-08-22 07:13] LABS: ABSOLUTE NEUTROPHILS 6.7 thou/uL (1.4-8.2); BASOPHILS 0.2 % (0.0-2.0); HEMOGLOBIN 8.9 gm/dL (14.0-18.0); LYMPHOCYTES 5.7 % (24.0-44.0); MCH 28.4 pg (26.0-34.0); MCHC 34.1 g/dL (28.0-37.0); MCV 83.3 fL (80.0-100.0); MONOCYTES 5.5 % (1.0-8.0); PLATELET COUNT 144 thou/uL (150-400); POLYS 88.6 % (36.0-66.0); RBC 3.12 mil/uL (4.50-6.00); RDW 15.2 % (10.5-14.5); WBC 7.6 thou/uL (4.0-11.0)
[2017-08-22 07:33] LABS: ALBUMIN 2.6 g/dL (3.4-5.0); CALCIUM 7.7 mg/dL (8.5-10.1); CREATININE 9.1 mg/dL (0.7-1.3); PHOSPHORUS 4.9 mg/dL (2.5-4.9); POTASSIUM 3.8 mmol/L (3.5-5.1); TROPONIN-I 0.07 ng/mL (<0.06)
[2017-08-23] VITALS (7 sets, daily range): BP systolic 140–163; BP diastolic 83–93
[2017-08-23 00:14] LABS: BE(vivo) -7.4 mmol/L (-2 to +3); HCO3 16.7 mmol/L (22.0-26.0); PCO2 29.2 mmHg (35.0-45.0); PO2 66.5 mmHg (80.0-100.0); pH 7.376 (7.360-7.450); sO2 93.1 % (92.0-98.0)
[2017-08-23 05:45] LABS: CALCIUM 7.7 mg/dL (8.5-10.1); PHOSPHORUS 5.5 mg/dL (2.5-4.9); POTASSIUM 3.9 mmol/L (3.5-5.1)
[2017-08-24 01:08] LABS: HEP B SURFACE Ab(ANTI-HBS Non Reactive (()); HEPATITIS B SURFACE AG Negative (Negative)
[2017-08-24 04:15] VITALS: BP 143/95
[2017-08-24 10:52] VITALS: BP 179/108
[2017-08-24 14:00] VITALS: BP 149/97
[2017-08-24 15:41] VITALS: BP 142/92
[2017-08-24 19:02] VITALS: BP 146/99
[2017-08-25 03:28] VITALS: BP 152/77
[2017-08-25 04:52] LABS: ABSOLUTE NEUTROPHILS 7.1 thou/uL (1.4-8.2); BASOPHILS 0.5 % (0.0-2.0); EOSINOPHILS 0.1 % (0.0-3.0); HEMATOCRIT 26.8 % (42.0-52.0); HEMOGLOBIN 9.3 gm/dL (14.0-18.0); LYMPHOCYTES 8.9 % (24.0-44.0); MCH 28.3 pg (26.0-34.0); MCHC 34.7 g/dL (28.0-37.0); MCV 81.7 fL (80.0-100.0); MONOCYTES 7.5 % (1.0-8.0); PLATELET COUNT 148 thou/uL (150-400); RBC 3.27 mil/uL (4.50-6.00); RDW 15.3 % (10.5-14.5); WBC 8.5 thou/uL (4.0-11.0)
[2017-08-25 05:04] LABS: ALBUMIN 2.5 g/dL (3.4-5.0); CALCIUM 7.3 mg/dL (8.5-10.1); PHOSPHORUS 4.3 mg/dL (2.5-4.9)
[2017-08-25 05:10] LABS: CREATININE 5.6 mg/dL (0.7-1.3)
[2017-08-25 12:47] VITALS: BP 142/75
[2017-08-25 17:29] VITALS: BP 143/99
[2017-08-25 20:00] VITALS: BP 134/54; BP 134/82; BP 139/89
[2017-08-26 04:22] VITALS: BP 141/91
[2017-08-26 05:40] LABS: HEMATOCRIT 24.4 % (42.0-52.0); HEMOGLOBIN 8.5 gm/dL (14.0-18.0); MCH 28.3 pg (26.0-34.0); MCHC 34.9 g/dL (28.0-37.0); RBC 3.01 mil/uL (4.50-6.00); RDW 14.9 % (10.5-14.5); WBC 5.8 thou/uL (4.0-11.0)
[2017-08-26 06:08] LABS: CREATININE 4.9 mg/dL (0.7-1.3); POTASSIUM 3.5 mmol/L (3.5-5.1)
[2017-08-26 09:24] VITALS: BP 149/96
[2017-08-26 11:53] VITALS: BP 128/81
[2017-08-26] MEDS ORDERED: IPRAT-ALBUT 0.5-3 ML INH (13:34)
[2017-08-26] MEDS ORDERED: CEFDINIR300 MG PO (13:37)
[2017-08-26 16:12] VITALS: BP 143/91
== END 2017-08-26 17:07 | DRG 871 ==
LOC: ER 23:43 → EROBS 08-21 01:37 → 3W 08-21 01:37
PROVIDERS: Emergency Medicine; Hospitalist; Nurse Practitioner Acute Care
PROC: B5181ZA Fluoroscopy of Superior Vena Cava using Low Osmolar Contrast, Guidance (ICD-10-PCS; principal; 2017-08-23)
PROC: 5A1D70Z Performance of Urinary Filtration, Intermittent, Less than 6 Hours Per Day (ICD-10-PCS; principal; 2017-08-23)
PROC: 5A09357 Assistance with Respiratory Ventilation, Less than 24 Consecutive Hours, Continuous Positive Airway Pressure (ICD-10-PCS; principal; 2017-08-23)
PROC: B548ZZA Ultrasonography of Superior Vena Cava, Guidance (ICD-10-PCS; principal; 2017-08-23)
PROC: 02HV33Z Insertion of Infusion Device into Superior Vena Cava, Percutaneous Approach (ICD-10-PCS; principal; 2017-08-23)
PROC: 5A1D70Z Performance of Urinary Filtration, Intermittent, Less than 6 Hours Per Day (ICD-10-PCS; 2017-08-24)
PROC: 5A09357 Assistance with Respiratory Ventilation, Less than 24 Consecutive Hours, Continuous Positive Airway Pressure (ICD-10-PCS; 2017-08-24)
PROC: 5A1D70Z Performance of Urinary Filtration, Intermittent, Less than 6 Hours Per Day (ICD-10-PCS; 2017-08-25)
PROC: 5A1D70Z Performance of Urinary Filtration, Intermittent, Less than 6 Hours Per Day (ICD-10-PCS; 2017-08-26)
DX: A41.9 Sepsis, unspecified organism (principal); J96.21 Acute and chronic respiratory failure with hypoxia; J15.9 Unspecified bacterial pneumonia; N18.6 End stage renal disease; N17.9 Acute kidney failure, unspecified; I42.9 Cardiomyopathy, unspecified; I50.42 Chronic combined systolic (congestive) and diastolic (congestive) heart failure; I13.2 Hypertensive heart and chronic kidney disease with heart failure and with stage 5 chronic kidney disease, or end stage renal disease; J44.9 Chronic obstructive pulmonary disease, unspecified; D64.9 Anemia, unspecified; E87.6 Hypokalemia; I27.20 Pulmonary hypertension, unspecified; D69.6 Thrombocytopenia, unspecified; Z79.899 Other long term (current) drug therapy; Z86.73 Personal history of transient ischemic attack (TIA), and cerebral infarction without residual deficits; Z88.6 Allergy status to analgesic agent; Z88.8 Allergy status to other drugs, medicaments and biological substances; Z87.891 Personal history of nicotine dependence; Z82.49 Family history of ischemic heart disease and other diseases of the circulatory system; Z80.1 Family history of malignant neoplasm of trachea, bronchus and lung
CPT/HCPCS: 10779; 32100

== ENCOUNTER 2017-08-26 22:40 | Inpatient (IN) | payer OTHER ==
[~2017-08-26] VITALS: Ht 167.6 cm; Wt 66.1 kg
--- NOTE | ~2017-08-26 | EKG ---
[address] [place] [address] ELECTROCARDIOGRAM REPORT Name: CHAYDRE Room #: 357-P ADM IN M.R.#: [id number] Admission: 08/27/17 Attend Phys: Michele Sabillon MD Discharge: Date of : 53 Report #: [id number] THIS REPORT FOR: //name// [facility] ED Test Date: 2017-08-26 Test Time: 22:58:41 Pat Name: DRE CARTWRIGHT Department: Room: Gender: M Telesales Supervisor: BLAKE : 1955 Requested By: Jaydon Sunshine Order Number: [id number] MD: Kasi Navarrete Measurements Intervals [place] Rate: 83 P: 47 NM: 140 QRS: 18 QRSD: 99 T: 155 QT: 412 QTc: 485 Interpretive Statements Sinus rhythm Probable left atrial enlargement Abnormal T, consider ischemia, lateral leads Compared to ECG 08/20/2017 23:43:42 Sinus tachycardia no longer present Electronically Signed On 08-27-2017 8:15:48 CDT by Kasi Navarrete [email or web address] <ELECTRONICALLY SIGNED> By: Kasi Navarrete MD, [facility] 08/27/17 0815 2258 225 Kasi Navarrete MD, [facility] /EPI
[2017-08-26 22:40] VITALS: BP 160/100
[~2017-08-26 22:40] MED LIST changes: +CEFDINIR300 MG PO; +IPRAT-ALBUT 0.5-3 ML INH; +LIPITOR10 MG PO
[2017-08-26 23:23] LABS: BE(vivo) -3.4 mmol/L (-2 to +3); HCO3 20.1 mmol/L (22.0-26.0); PCO2 30.8 mmHg (35.0-45.0); PO2 60.8 mmHg (80.0-100.0); pH 7.433 (7.360-7.450); sO2 92.4 % (92.0-98.0)
[2017-08-26 23:45] LABS: HEMATOCRIT 27.6 % (42.0-52.0); HEMOGLOBIN 9.4 gm/dL (14.0-18.0); MCH 28.5 pg (26.0-34.0); MCHC 34.2 g/dL (28.0-37.0); MCV 83.3 fL (80.0-100.0); PLATELET COUNT 136 thou/uL (150-400); RBC 3.32 mil/uL (4.50-6.00); RDW 15.3 % (10.5-14.5); WBC 6.7 thou/uL (4.0-11.0)
[2017-08-27 00:06] LABS: CALCIUM 7.3 mg/dL (8.5-10.1); CREATININE 5.6 mg/dL (0.7-1.3); POTASSIUM 3.7 mmol/L (3.5-5.1)
[2017-08-27 00:15] LABS: TROPONIN-I 0.07 ng/mL (<0.06)
[2017-08-27 00:40] LABS: ABSOLUTE NEUTROPHILS 5.1 thou/uL (1.4-8.2)
[2017-08-27 02:03] VITALS: BP 181/108
[2017-08-27 02:11] VITALS: BP 181/108
[2017-08-27 02:30] VITALS: BP 164/95
[2017-08-27 07:54] LABS: HEMATOCRIT 28.4 % (42.0-52.0); HEMOGLOBIN 9.6 gm/dL (14.0-18.0); MCH 27.7 pg (26.0-34.0); MCHC 33.6 g/dL (28.0-37.0); MCV 82.4 fL (80.0-100.0); RBC 3.45 mil/uL (4.50-6.00); RDW 15.2 % (10.5-14.5); WBC 6.6 thou/uL (4.0-11.0)
[2017-08-27 08:11] LABS: CALCIUM 7.2 mg/dL (8.5-10.1); CREATININE 5.8 mg/dL (0.7-1.3); POTASSIUM 3.5 mmol/L (3.5-5.1)
[2017-08-27 12:20] VITALS: BP 177/108
[2017-08-27 15:59] VITALS: BP 133/89
== END 2017-08-27 18:50 | DRG 291 ==
LOC: ER 22:40 → EROBS 08-27 01:33 → 3W 08-27 01:33
PROVIDERS: Emergency Medicine; Nurse Practitioner
PROC: 5A1D70Z Performance of Urinary Filtration, Intermittent, Less than 6 Hours Per Day (ICD-10-PCS; principal; 2017-08-27)
DX: I13.2 Hypertensive heart and chronic kidney disease with heart failure and with stage 5 chronic kidney disease, or end stage renal disease (principal); J18.9 Pneumonia, unspecified organism; J96.21 Acute and chronic respiratory failure with hypoxia; N18.6 End stage renal disease; I50.23 Acute on chronic systolic (congestive) heart failure; J81.1 Chronic pulmonary edema; I50.30 Unspecified diastolic (congestive) heart failure; J44.0 Chronic obstructive pulmonary disease with (acute) lower respiratory infection; I42.9 Cardiomyopathy, unspecified; D69.6 Thrombocytopenia, unspecified; I27.20 Pulmonary hypertension, unspecified; D64.9 Anemia, unspecified; Z86.73 Personal history of transient ischemic attack (TIA), and cerebral infarction without residual deficits; Z88.6 Allergy status to analgesic agent; Z88.8 Allergy status to other drugs, medicaments and biological substances; Z82.49 Family history of ischemic heart disease and other diseases of the circulatory system; Z80.1 Family history of malignant neoplasm of trachea, bronchus and lung; Z87.891 Personal history of nicotine dependence
CPT/HCPCS: 10879; 32100

== ENCOUNTER 2017-09-05 21:43 | Inpatient (IN) | payer OTHER ==
[~2017-09-05] VITALS: Ht 170.2 cm; Wt 57.5 kg
--- NOTE | ~2017-09-05 | HC ---
[facility] [place] [address] CONSULTATION Name: DRE CARTWRIGHT Room #: 239- ADM IN M.R.#: [id number] Admission: 09/05/17 Attend Phys: Dino Herron MD Discharge: Date of : 53 Report #: [id number] THIS REPORT FOR: //name// CC: Dino Manley DATE OF SERVICE: 09/06/2017 HISTORY OF PRESENT ILLNESS: This is a 62-year-old male patient who was evaluated by me for altered mental status. The patient was discussed with the nurses looking after this patient. It looks like this patient is admitted with respiratory distress. He has a chronic disease as well as acute diseases. He is intubated. He is on vent. There has been a decline in the patient's mentation before coming to the hospital. That is all the history which is available in this patient. REVIEW OF SYSTEMS: Indicate the patient is a dialysis patient as I understand from the nurses. He has a history of hemorrhagic CVA and speech impairment. I do not know more history about that. He also apparently had right-sided weakness. There is some question of seizures in this patient, but I cannot get any further history in that regard. His medication does include Keppra. Review of the records in this patient indicates that he had multiple admissions to this hospital, but those are from April. He has numerous medical problems and it looks like quality of the life is pretty poor in this patient. He lives in a care home. This was his relevant 14-point review of systems, which I can get. PAST MEDICAL HISTORY: Positive for hemorrhagic CVA and question of seizures. FAMILY HISTORY: Unavailable. SOCIAL HISTORY: He lives in a care home. PHYSICAL EXAMINATION: Pretty limited. He does not follow any command. He does not have any reflexes. He does not have any doll's eye movement, but the nurses tell me when the propofol is taken off, he is able to respond some. He is intubated. He is a reasonably well-developed individual. I cannot tell about hearing or vision. His blood pressure is 141/96, pulse rate is 101. His cardiac examination is noncontributory. LABORATORY DATA: His white count is 10. His sodium is 133. IMPRESSION: 1. Encephalopathy. 2. History of cerebrovascular accident. 3. History of seizure, all these histories are poorly available. [facility] [address] [place] [address] CONSULTATION Name: DRE CARTWRIGHT Room #: 239-P [facility] IN M.R.#: [id number] Admission: 09/05/17 Attend Phys: Dino Herron MD Discharge: Date of : 53 Report #: [id number] RECOMMENDATIONS: 1. I agree with a noncontrast CT of the head, which is scheduled at 5:00 p.m. 2. We will get an EEG. 3. Presently, I will continue Keppra, but we will not add any other anticonvulsant. Thank you very much for this referral and if you have any question, please feel free to contact me. By: 1656 1723 Jewel Milligan MD /marley
--- NOTE | ~2017-09-05 | HC ---
[facility] [address] [place] [address] CONSULTATION Name: DRE CARTWRIGHT Room #: 242-P [facility] IN M.R.#: [id number] Admission: 09/05/17 Attend Phys: Dino Herron MD Discharge: Date of : 53 Report #: [id number] THIS REPORT FOR: //name// CC: Dino Manley REASON FOR PRESENTATION: Shortness of breath. HISTORY OF PRESENT ILLNESS: The patient is currently intubated and not able to provide me with the history; however, he is well known to me. A 62-year-old with extreme noncompliance due to neurocognitive dysfunction. He has an end-stage renal disease, maintained on dialysis every Wednesday, Wednesday and Wednesday. EMS was called to the [facility] because of respiratory distress. He has major issues maintaining his fluid and salt restrictions and this contributed to pulmonary edema on multiple occasions. He presented with a very low O2 saturation at 80%. He was placed on CPAP. However, because of his change in the mental status and poor oxygenation, he was intubated. Chest x-ray was consistent with pulmonary edema as expected. I am being asked to evaluate for his chronic kidney disease, end-stage renal disease, dialysis management. PAST MEDICAL HISTORY: 1. End-stage renal disease. 2. Severe cardiomyopathy. 3. Seizure disorder. 4. Hemorrhagic stroke with impaired neurocognitive function. MEDICATIONS: 1. Hydralazine. 2. Carvedilol. 3. Amlodipine. 4. Keppra. 5. Albuterol. ALLERGIES: ASPIRIN, IBUPROFEN, and LISINOPRIL. REVIEW OF SYSTEMS: Unobtainable given the fact that the patient is currently intubated. SOCIAL HISTORY: He resides in the [facility]. No reported drug or alcohol abuse. PHYSICAL EXAMINATION: GENERAL: The patient is currently intubated. VITAL SIGNS: Blood pressure is marginally elevated at 160/80. He is afebrile. Current temperature is 36.5. Blood pressure readings when he presented yesterday was 170/113. HEAD AND NECK: ET tube. [facility] [address] [place] [address] CONSULTATION Name: DRE CARTWRIGHT Room #: 242-P [facility] IN M.R.#: [id number] Admission: 09/05/17 Attend Phys: Dino Herron MD Discharge: Date of : 53 Report #: [id number] CHEST: Bilateral crackles. CARDIOVASCULAR: No rub. ABDOMEN: Soft, nontender. LOWER EXTREMITIES: No edema. LABORATORY VALUES: Reviewed. Sodium 133, potassium 5.7, BUN 59, creatinine 6.8. Hemoglobin is 9. Chest x-ray reviewed, pulmonary edema. ASSESSMENT, IMPRESSION, AND PLAN: 1. End-stage renal disease. 2. Noncompliance. 3. Pulmonary edema. 4. Neurocognitive dysfunction. 5. Chronic obstructive pulmonary disease. 6. We will arrange for the patient to have his usual dialysis today. 7. Fluid and salt restrictions. 8. Continue to commercial counsel. 9. Resume his cardiomyopathy medications. 10. Unfortunately with his current neurocognitive dysfunction, it will be very difficult to evaluate. It will be very difficult to keep him in an euvolemic status. This will be a very rough course when it comes to the dialysis given his recurrent and persistent admissions with the same presentation. Unfortunately, he does not have good social support and family members to discuss his long-term plans. We would rather him to be on palliative and hospice care. We will try to reach out to his family. <ELECTRONICALLY SIGNED> By: Meera Gustafson MD 09/07/17 0924 0816 1026 Meera Gustafson MD /nt
--- NOTE | ~2017-09-05 | EEG ---
[facility] [place] [address] ELECTROENCEPHALOGRAM Name: DRE CARTWRIGHT Room #: 242-P [facility] IN M.R.#: [id number] Admission: 09/05/17 Attend Phys: Dino Herron MD Discharge: Date of : 53 Report #: [id number] THIS REPORT FOR: //name// CC: Dino Manley DATE OF SERVICE: 09/07/2017 This patient is being evaluated for any seizure disorder. EEG was done by placing the electrode by standard 10-20 system of electrode placement. Both referential and sequential montages were used for recording. Background activity in this patient's EEG is about 8 Hz and 30 microvolt. It is a symmetrical activity. Photic stimulation is unremarkable. No active epileptiform activity was noticed. IMPRESSION: This patient's EEG does not demonstrate any clear-cut epileptiform activity. By: 1744 182 Jewel Milligan MD /nt
--- NOTE | ~2017-09-05 | EKG ---
[address] [place] [address] ELECTROCARDIOGRAM REPORT Name: DRE CARTWRIGHT Room #: 242-P DIS IN M.R.#: [id number] Admission: 09/05/17 Attend Phys: Dino Herron MD Discharge: 09/08/17 Date of : 53 Report #: [id number] THIS REPORT FOR: //name// [facility] Test Date: 2017-09-08 Test Time: 12:10:19 Pat Name: DRE CARTWRIGHT Department: Room: 242 P Gender: M President + Publisher: ANDREWS : 1955 Requested By: Rodri Markham Order Number: [id number] MD: Kasi Navarrete Measurements Intervals [place] Rate: 110 P: 64 [place]: 167 QRS: 48 QRSD: 108 T: 199 QT: 305 QTc: 413 Interpretive Statements Sinus tachycardia Atrial premature complexes Anterior ST elevation, consider injury Baseline wander in lead(s) V3 Compared to ECG 09/05/2017 22:18:53 Atrial premature complex(es) now present Anterior ST segment elevation less prominent Electronically Signed On 09-10-2017 8:26:31 CDT by Kasi Navarrete [email or web address] <ELECTRONICALLY SIGNED> By: Kasi Navarrete MD, [facility] 09/10/17 0826 1210 1210 Kasi Navarrete MD, [facility] /EPI
--- NOTE | ~2017-09-05 | EKG ---
[address] [address] ELECTROCARDIOGRAM REPORT Name: DRE CARTWRIGHT Room #: 242-P DIS IN M.R.#: [id number] Admission: 09/05/17 Attend Phys: Dino Herron MD Discharge: 09/08/17 Date of : 53 Report #: [id number] THIS REPORT FOR: //name// [facility] Test Date: 2017-09-08 Test Time: 12:00:23 Pat Name: DRE CARTWRIGHT Department: Room: 242 P Gender: M Risk Control Manager: ANDREWS : 1955 Requested By: Rodri Markham Order Number: [id number] MD: Kasi Navarrete Measurements Intervals [place] Rate: 56 P: 42 [place]: 135 QRS: 60 QRSD: 120 T: 38 QT: 418 QTc: 404 Interpretive Statements Sinus rhythm IVCD, consider atypical RBBB Anterior infarct, acute (LAD) Compared to ECG 09/05/2017 22:18:53 Myocardial infarct finding now present Sinus tachycardia no longer present Electronically Signed On 09-10-2017 8:24:33 CDT by Kasi Navarrete [email or web address] <ELECTRONICALLY SIGNED> By: Kasi Navarrete MD, [facility] 09/10/17 0824 1200 1200 Kasi Navarrete MD, [facility] /EPI
--- NOTE | ~2017-09-05 | EKG ---
[address] [place] [address] ELECTROCARDIOGRAM REPORT Name: DRE CARTWRIGHT Room #: 242-P DIS IN M.R.#: [id number] Admission: 09/05/17 Attend Phys: Dino Herron MD Discharge: 09/08/17 Date of : 53 Report #: [id number] THIS REPORT FOR: //name// [facility] Test Date: 2017-09-08 Test Time: 12:52:52 Pat Name: DRE CARTWRIGHT Department: Room: 242 P Gender: M Storeroom Attendant: ANDREWS : 1955 Requested By: Dino Herron Order Number: [id number] MD: Kasi Navarrete Measurements Intervals [place] Rate: 88 P: AL: QRS: 146 QRSD: 219 T: 30 QT: 510 QTc: 618 Interpretive Statements Sinus rhythm with first-degree AV block Right bundle branch block Compared to ECG 09/05/2017 22:18:53 Marked QRS widening is now present Electronically Signed On 09-10-2017 8:32:21 CDT by Kasi Navarrete [email or web address] <ELECTRONICALLY SIGNED> By: Kasi Navarrete MD, [facility] 09/10/17 0832 1252 125 Kasi Navarrete MD, [facility] /EPI
--- NOTE | ~2017-09-05 | EKG ---
[place] [address] [facility] [employer] [place] [address] ELECTROCARDIOGRAM REPORT Name: CHAYDRE Room #: 239-P ADM IN M.R.#: [id number] Admission: 09/05/17 Attend Phys: Dino Herron MD Discharge: Date of : 53 Report #: [id number] THIS REPORT FOR: //name// [facility] Test Date: 2017-09-05 Test Time: 22:18:53 Pat Name: DRE CARTWRIGHT Department: Room: Gender: M Child Development Teacher: MZOOK : 1955 Requested By: Rianna Bernal Order Number: [id number] MD: Kasi Navarrete Measurements Intervals [place] Rate: 119 P: 67 [place]: 129 QRS: 32 QRSD: 88 T: 155 QT: 326 QTc: 459 Interpretive Statements Sinus tachycardia Abnrm T, consider ischemia,lateral lds Borderline ST elevation, anterior leads Compared to ECG 08/29/2017 06:31:39 No significant change was found Electronically Signed On 09-06-2017 7:59:56 CDT by Kasi Navarrete [email or web address] <ELECTRONICALLY SIGNED> By: Kasi Navarrete MD, [facility] 09/06/17 0759 2218 2218 Kasi Navarrete MD, [facility] /EPI
[2017-09-05 21:45] VITALS: BP 172/113
[2017-09-05 22:06] LABS: ABSOLUTE NEUTROPHILS 7.5 thou/uL (1.4-8.2); BASOPHILS 0.8 % (0.0-2.0); EOSINOPHILS 4.1 % (0.0-3.0); HEMATOCRIT 27.2 % (42.0-52.0); MCH 28.3 pg (26.0-34.0); MCV 85.6 fL (80.0-100.0); MONOCYTES 6.1 % (1.0-8.0); PLATELET COUNT 194 thou/uL (150-400); RBC 3.18 mil/uL (4.50-6.00); RDW 15.6 % (10.5-14.5)
[2017-09-05 22:09] LABS: CALCIUM 7.8 mg/dL (8.5-10.1); CREATININE 6.9 mg/dL (0.7-1.3); POTASSIUM 4.7 mmol/L (3.5-5.1)
[2017-09-05 22:18] LABS: TROPONIN-I 0.11 ng/mL (<0.06)
[2017-09-05 22:53] LABS: BE(vivo) -3.8 mmol/L (-2 to +3); HCO3 23.3 mmol/L (22.0-26.0); pH 7.269 (7.360-7.450); sO2 93.9 % (92.0-98.0)
[2017-09-05] MEDS ORDERED: AUGMENTIN 875-1 EACH PO (23:14)
[2017-09-05] MEDS ORDERED: ATIVAN0.5 MG PO (23:15)
[2017-09-05] MEDS ORDERED: LASIX 20 MG TAB20 MG PO (23:16)
[2017-09-05] MEDS ORDERED: POTASSIUM20 PO (23:16)
[2017-09-05 23:45] VITALS: BP 141/96
[2017-09-06 04:40] LABS: BE(vivo) -3.3 mmol/L (-2 to +3); HCO3 21.6 mmol/L (22.0-26.0); PO2 77.5 mmHg (80.0-100.0); pH 7.373 (7.360-7.450); sO2 95.2 % (92.0-98.0)
[2017-09-06 05:31] LABS: ALBUMIN 2.6 g/dL (3.4-5.0); CALCIUM 7.4 mg/dL (8.5-10.1); CREATININE 6.8 mg/dL (0.7-1.3); MAGNESIUM 1.9 mg/dL (1.8-2.4); TOTAL BILIRUBIN 0.6 mg/dL (<0.1-1.0); TOTAL PROTEIN 5.6 g/dL (6.4-8.2); TROPONIN-I 0.1 ng/mL (<0.06)
[2017-09-06 05:35] LABS: POTASSIUM 5.7 mmol/L (3.5-5.1)
[2017-09-06 08:00] VITALS: BP 141/96
[2017-09-07 05:16] LABS: BE(vivo) 1.8 mmol/L (-2 to +3); HCO3 25.5 mmol/L (22.0-26.0); PCO2 36.3 mmHg (35.0-45.0); pH 7.465 (7.360-7.450); sO2 98.9 % (92.0-98.0)
[2017-09-07 12:03] LABS: BE(vivo) -1.2 mmol/L (-2 to +3); HCO3 22.9 mmol/L (22.0-26.0); PCO2 35.4 mmHg (35.0-45.0); PO2 94.7 mmHg (80.0-100.0); pH 7.428 (7.360-7.450); sO2 97.4 % (92.0-98.0)
[2017-09-07 19:00] VITALS: BP 169/98
[2017-09-07 20:00] VITALS: BP 166/106
[2017-09-07 21:00] VITALS: BP 170/107
[2017-09-07 22:00] VITALS: BP 162/105
[2017-09-07 23:00] VITALS: BP 157/93
[2017-09-08] VITALS (9 sets, daily range): BP systolic 161–176; BP diastolic 98–121
[2017-09-08 09:35] LABS: BE(vivo) 1.1 mmol/L (-2 to +3); HCO3 23.6 mmol/L (22.0-26.0); PCO2 30.5 mmHg (35.0-45.0); PO2 107.4 mmHg (80.0-100.0); pH 7.506 (7.360-7.450); sO2 98.4 % (92.0-98.0)
[2017-09-08 12:26] LABS: ABSOLUTE NEUTROPHILS 9.4 thou/uL (1.4-8.2); BASOPHILS 0.8 % (0.0-2.0); EOSINOPHILS 1.7 % (0.0-3.0); HEMATOCRIT 39.8 % (42.0-52.0); MCH 29.1 pg (26.0-34.0); MCHC 32.9 g/dL (28.0-37.0); MCV 88.6 fL (80.0-100.0); MONOCYTES 6.6 % (1.0-8.0); POLYS 79.9 % (36.0-66.0); RBC 4.49 mil/uL (4.50-6.00); RDW 15.9 % (10.5-14.5); WBC 11.8 thou/uL (4.0-11.0)
[2017-09-08 12:35] LABS: HEMOGLOBIN 13.1 gm/dL (14.0-18.0); PLATELET COUNT 272 thou/uL (150-400)
[2017-09-08 12:56] LABS: BUN 13 mg/dL (7-18); GLUCOSE 53 mg/dL (74-106)
[2017-09-08 13:01] LABS: FIBRINOGEN 302.2 mg/dL (210-360); INR 1.3; PROTIME 13.4 Seconds (9.3-11.4)
[2017-09-08 13:06] LABS: POTASSIUM 6.5 mmol/L (3.5-5.1); SODIUM 180 mmol/L (136-145)
[2017-09-08 13:07] LABS: CHLORIDE 119 mmol/L (98-107); CO2 > 45 mmol/L (21-32); CREATININE 2.6 mg/dL (0.7-1.3)
== END 2017-09-08 12:58 | DRG 208 ==
LOC: ER 21:43 → EROBS 23:10 → ICU 23:10
PROVIDERS: Emergency Medicine; Hospitalist; Internal Medicine Pulmonary Disease; Nurse Practitioner Acute Care
PROC: 5A1945Z Respiratory Ventilation, 24-96 Consecutive Hours (ICD-10-PCS; principal; 2017-09-06)
PROC: 0BH17EZ Insertion of Endotracheal Airway into Trachea, Via Natural or Artificial Opening (ICD-10-PCS; 2017-09-06)
PROC: 5A1D70Z Performance of Urinary Filtration, Intermittent, Less than 6 Hours Per Day (ICD-10-PCS; 2017-09-06)
PROC: 5A09357 Assistance with Respiratory Ventilation, Less than 24 Consecutive Hours, Continuous Positive Airway Pressure (ICD-10-PCS; 2017-09-08)
PROC: 5A1D70Z Performance of Urinary Filtration, Intermittent, Less than 6 Hours Per Day (ICD-10-PCS; 2017-09-08)
PROC: 5A12012 Performance of Cardiac Output, Single, Manual (ICD-10-PCS; 2017-09-08)
DX: J96.21 Acute and chronic respiratory failure with hypoxia (principal); I50.43 Acute on chronic combined systolic (congestive) and diastolic (congestive) heart failure; N18.6 End stage renal disease; J18.9 Pneumonia, unspecified organism; G93.40 Encephalopathy, unspecified; E87.2 Acidosis; I13.2 Hypertensive heart and chronic kidney disease with heart failure and with stage 5 chronic kidney disease, or end stage renal disease; J44.0 Chronic obstructive pulmonary disease with (acute) lower respiratory infection; I42.9 Cardiomyopathy, unspecified; D64.9 Anemia, unspecified; G40.909 Epilepsy, unspecified, not intractable, without status epilepticus; Y95 Nosocomial condition; R41.9 Unspecified symptoms and signs involving cognitive functions and awareness; E87.5 Hyperkalemia; I49.01 Ventricular fibrillation; I46.9 Cardiac arrest, cause unspecified; Z87.01 Personal history of pneumonia (recurrent); Z99.2 Dependence on renal dialysis; Z88.8 Allergy status to other drugs, medicaments and biological substances; Z79.899 Other long term (current) drug therapy; I69.398 Other sequelae of cerebral infarction; Z91.11 Patient's noncompliance with dietary regimen; Z82.49 Family history of ischemic heart disease and other diseases of the circulatory system; Z80.1 Family history of malignant neoplasm of trachea, bronchus and lung; Z87.891 Personal history of nicotine dependence
CPT/HCPCS: 10078; 32100